=== PATIENT | male | born 1975 | race Caucasian/White ===

== ENCOUNTER → 2021-04-15 | Outpatient (CLI) | payer OTHER | LOC: LAB SHORT 07:33 → LAB 07:33 | DX: D48.5 Neoplasm of uncertain behavior of skin (principal); D22.62 Melanocytic nevi of left upper limb, including shoulder | CPT/HCPCS: 88305 ==

== ENCOUNTER → 2021-06-16 | Outpatient (CLI) | payer OTHER | END | disposition home or self-care (01) | LOC: LAB SHORT 08:07 | DX: D22.62 Melanocytic nevi of left upper limb, including shoulder (principal) | CPT/HCPCS: 88305 ==

== ENCOUNTER → 2022-04-08 | Outpatient (CLI) | payer BC | END | disposition home or self-care (01) | LOC: PLD 08:18 → LAB SHORT 08:18 | DX: L57.0 Actinic keratosis (principal); L81.4 Other melanin hyperpigmentation | CPT/HCPCS: 88305 ==

== ENCOUNTER → 2023-04-07 | Outpatient (CLI) | payer BC | LOC: LAB SHORT 16:32 → PLD 16:32 | DX: D48.5 Neoplasm of uncertain behavior of skin (principal) | CPT/HCPCS: 88305 ==

== ENCOUNTER → 2023-05-17 | Outpatient (CLI) | payer BC | LOC: LAB SHORT 08:21 → LAB 08:21 | DX: C44.612 Basal cell carcinoma of skin of right upper limb, including shoulder (principal) | CPT/HCPCS: 88305 ==